=== PATIENT | female | born 1995 | race Caucasian/White ===

== ENCOUNTER → 2019-02-08 14:04 | Emergency (ER) | payer OTHER ==
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
[2019-02-08 17:35] VITALS: BP 133/91
== END | disposition home or self-care (01) ==
LOC: ED 14:04
DX: S39.012A Strain of muscle, fascia and tendon of lower back, initial encounter (principal); V43.52XA Car driver injured in collision with other type car in traffic accident, initial encounter; Y92.410 Unspecified street and highway as the place of occurrence of the external cause
CPT/HCPCS: 72110; 99282